=== PATIENT | female | born 1995 | race African-American/Black ===

== ENCOUNTER 2017-05-07 19:21 | Emergency (ER) | payer MEDICAID, OTHER ==
[2017-05-07 19:36] VITALS: BP 124/78
[2017-05-07] MEDS ORDERED: LIDOCAINE 1% INJ-PF (10 MG/ML) 30 ML SDV INJ ONE (20:25)
[2017-05-07] MEDS ORDERED: AZITHROMYCIN 250 MG TABLET PO ONE (20:25)
[2017-05-07] MEDS ORDERED: CEFTRIAXONE INJ 1000 MG VIAL IM ONE (20:25)
--- NOTE | 2017-05-07 20:31 | ER Document Report ---
HPI - HPI Pain Level: 4 Notes: Patient is a 21-year-old female who presents the ED complaining of vaginal itching and possible scant discharge x several days. Patient states that she would like STD testing. Patient states that she has been having unprotected sex , but denies and she has had a recent menstrual period. Patient denies any significant past medical history or drug allergies. She still eating and drinking without any difficulties. + herpes history. Patient denies a history of syphilis, gonorrhea, chlamydia, HIV, hepatitis. Denies any headache, fever, neck pain/stiffness, URI, sore throat, chest pain, palpitations , syncope, cough, shortness of breath, wheeze, dyspnea, abdominal pain, nausea/ vomiting/diarrhea, urinary retention, dysuria, hematuria, vaginal bleeding/odor , joint pains, or rash. - ROS Notes: REVIEW OF SYSTEMS: CONSTITUTIONAL : Denies fever, chills, or sweats. Denies recent illness. EENT: Denies eye, ear, throat, or mouth pain or symptoms. Denies nasal or sinus congestion or discharge. Denies throat, tongue, or mouth swelling or difficulty swallowing. CARDIOVASCULAR: Denies chest pain. Denies palpitations or racing or irregular heart beat. Denies ankle edema. RESPIRATORY: Denies cough, cold, or chest congestion. Denies shortness of breath, difficulty breathing, or wheezing. GASTROINTESTINAL: Denies abdominal pain or distention. Denies nausea, vomiting , or diarrhea. Denies blood in vomitus, stools, or per rectum. Denies black, tarry stools. Denies constipation. GENITOURINARY: Denies difficulty urinating, painful urination, burning, frequency, blood in urine, or discharge. FEMALE GENITOURINARY: see hpi MUSCULOSKELETAL: Denies back or neck pain or stiffness. Denies joint pain or swelling. SKIN: Denies rash, lesions or sores. NEUROLOGICAL: Denies confusion or altered mental status. Denies passing out or loss of consciousness. Denies dizziness or lightheadedness. Denies headache. Denies weakness or paralysis or loss of use of either side. Denies problems with gait or speech. PSYCHIATRIC: Denies anxiety or stress. Denies depression, suicidal ideation, or homicidal ideation. ALL OTHER SYSTEMS REVIEWED AND NEGATIVE. Dictation was performed using Be[employer] recognition software - DERM Skin Color: Normal Past Medical History - Social History Smoking Status: Unknown if Ever Smoked Family History: Reviewed & Not Pertinent Patient has suicidal ideation: No Patient has homicidal ideation: No Renal/ Medical History: Denies: Hx Peritoneal Dialysis Vertical Provider Document - CONSTITUTIONAL Agree With Documented VS: Yes Notes: PHYSICAL EXAMINATION: GENERAL: Well-appearing, well-nourished and in no acute distress. LUNGS: Breath sounds clear to auscultation bilaterally and equal. No wheezes rales or rhonchi. HEART: Regular rate and rhythm without murmurs ABDOMEN: Soft, nontender, nondistended abdomen. No guarding, no rebound. No masses appreciated. Normal bowel sounds present. CVA tenderness negative bilaterally. Female : No inguinal adenopathy. External genitalia without erythema, lesions , or masses. Vaginal mucosa pink with scant white discharge. Cervix parous, pink, and without discharge. Uterus is smooth. No adnexal tenderness. Extremities: No cyanosis/clubbing/edema b/l. Peripheral pulses 2+. Capillary refill less than 3 seconds. NEUROLOGICAL: Normal speech, normal gait. Normal sensory, motor exams PSYCH: Normal mood, normal affect. SKIN: Warm, Dry, normal turgor, no rashes or lesions noted. - INFECTION CONTROL TRAVEL OUTSIDE OF THE [place] IN LAST 30 DAYS: No - RESPIRATORY O2 Sat by Pulse Oximetry: 100 Course - Re-evaluation Re-evalutation: 05/07/17 20:30 Patient is an afebrile, well-hydrated, 21-year-old female who presents the ED with vaginal itching NOS. Vitals are stable. PE otherwise unremarkable. Wet mount and UA unremarkable. Urine hcg negative. Chlam/kevin pending. Rocephin and zithromax was given today as precautionary. Low suspicion/risk for acute appendicitis, bowel obstruction, acute cholecystitis, acute cholangitis, perforated diverticulitis, incarcerated hernia, pancreatitis, perforated ulcer, peritonitis, sepsis, pelvic inflammatory disease, ectopic , tubo- ovarian abscess, ovarian torsion, or other systemic emergent condition at this time. Patient is aware that her condition can change from initial presentation and she needs to monitor symptoms closely and seek medical attention if any acute changes. Conservative measures otherwise for symptoms. Recheck with OBGYN in 2-3 days. Recheck/establish with your PCM in 2-3 days. Check in with the health department this week for any further testing/management. Return to the ED with any worsening/concerning symptoms otherwise as reviewed in discharge. Patient is in agreement. - Vital Signs Vital signs: Temp Pulse Resp BP Pulse Ox 98.9 F 58 L 16 124/78 100 05/07/17 19:34 05/07/17 19:34 05/07/17 19:34 05/07/17 19:34 05/07/17 19:34 Procedures - Pelvic Exam Pelvic exam Time completed: 20:45 Cultures obtained: Yes Wet prep obtained: Yes Bimanual exam performed: Yes - neg Witnessed by: Female NurseJoseline Discharge - Discharge Clinical Impression: Vaginal itching, Worried well Condition: Stable Disposition: HOME, SELF-CARE Instructions: Family Physicians / Practices Additional Instructions: Push fluids (i.e. water, cranberry juice) Proper hygenic technique Keep the skin clean Safe sexual practices with condoms everytime Tylenol/ibuprofen as needed May use over the counter AZO for burning with urination Check in with the health department this week for further testing* Your chlamydia/Ghon test are pending and you will be notified if positive results; you may call in 2 days for the results as well You have been given follow up instructions including low cost follow up with one of the local primary care offices. Follow up with them tomorrow for further care and reevaluation. Return immediately if symptoms worsen F/u with your PCM in 2-3 days for a recheck Return to the ED with any development of GOLDMAN/fever, trouble with vision, eye redness, worsening pain, urethral discharge, urinary retention, blood in the urine, flank pain, abdominal pain, n/v, Chest Pain, shortness of breath, joint pains, trouble breathing, or any other worsening/concerning symptoms as needed otherwise. Referrals: [facility] [Provider Group] - Follow up as needed [facility] [Provider Group] - [facility]NO [facility]AL MD] - Follow up in 3-5 days [facility] [Provider Group] - Follow up as needed
[2017-05-07 21:46] LABS: APPEARANCE,URINE SLIGHTLY-CLOUDY; BILIRUBIN,URINE NEGATIVE (NEGATIVE); GLUCOSE, URINE NEGATIVE (NEGATIVE); KETONES,URINE 20 mg/dL (NEGATIVE); LEUKOCYTE ESTERASE,URINE TRACE (NEGATIVE); NITRITE,URINE NEGATIVE (NEGATIVE); PROTEIN,URINE NEGATIVE (NEGATIVE); URINE SPECIFIC GRAVITY 1.028; UROBILINOGEN,URINE NEGATIVE mg/dL (<2.0)
[2017-05-07 23:11] LABS: CHLAM PCR NOT DETECTED (NOT DETECT)
== END 2017-05-07 22:10 | disposition home or self-care (01) ==
LOC: ER 19:21
DX: L29.9 Pruritus, unspecified (principal); Z20.2 Contact with and (suspected) exposure to infections with a predominantly sexual mode of transmission; Z71.1 Person with feared health complaint in whom no diagnosis is made
CPT/HCPCS: 81001; 81025; 87210; 87491; 87591; 99283

== ENCOUNTER 2019-09-27 08:51 | Emergency (ER) | payer SELFPAY ==
[2019-09-27 08:57] VITALS: BP 130/85
--- NOTE | 2019-09-27 09:26 | ER Document Report ---
HPI - HPI Time Seen by Provider: 09/27/19 09:18 Pain Level: 5 Context: Patient is a 24-year-old female who presents emergency department with a chief complaint of chronic dental pain. Patient reports she has had dental pain around all 4 wisdom teeth for about 2 years. Patient here requesting referrals for dentist in the area as she feels like this needs to be treated promptly. Patient reports she is called multiple dentist but that there is a wait time. Patient denies fever. Patient took a BC powder 1 hour prior to arrival. Patient denies difficulty breathing, difficulty swallowing or facial swelling. Patient denies fever. Patient reports this type of pain that she is experiencing currently is a same type of pain that she has been having for 2 years. - CONSTITUTIONAL Constitutional: DENIES: Fever, Chills - REPRODUCTIVE LMP: 08/27/2019 Reproductive: DENIES: : Past Medical History - General Information source: Patient - Social History Smoking Status: Never Smoker Chew tobacco use (# tins/day): No Frequency of alcohol use: Occasional Drug Abuse: None Lives with: Family Family History: Reviewed & Not Pertinent Patient has suicidal ideation: No Patient has homicidal ideation: No - Past Medical History Cardiac Medical History: Reports: None Pulmonary Medical History: Reports: None EENT Medical History: Reports: None Neurological Medical History: Reports: None Endocrine Medical History: Reports: None Renal/ Medical History: Reports: None. Denies: Hx Peritoneal Dialysis Malignancy Medical History: Reports: None GI Medical History: Reports: None Musculoskeletal Medical History: Reports None Skin Medical History: Reports None Psychiatric Medical History: Reports: None Traumatic Medical History: Reports: None Infectious Medical History: Reports: None Surgical Hx: Negative Vertical Provider Document - CONSTITUTIONAL Agree With Documented VS: Yes Exam Limitations: No Limitations General Appearance: No Apparent Distress - INFECTION CONTROL TRAVEL OUTSIDE OF THE [place] IN LAST 30 DAYS: No - HEENT HEENT: Atraumatic, Normal ENT Exam, Normocephalic, PERRLA Notes: When palpating inside the mouth there is no significant tenderness or erythema noted to the gums or teeth. There is no palpable abscess. No facial swelling. - RESPIRATORY Respiratory: Breath Sounds Normal, No Respiratory Distress - CARDIOVASCULAR Cardiovascular: Regular Rate, Regular Rhythm - GI/ABDOMEN Gastrointestinal: Abdomen Soft, Abdomen Non-Tender, Normal Bowel Sounds - NEURO Level of Consciousness: Awake, Alert, Appropriate - DERM Integumentary: Warm, Dry, No Rash Course - Re-evaluation Re-evalutation: 09/27/19 09:34 I have provided the patient with multiple referrals to a dentist and oral surgeons here in the area. I did inform her that there could be a wait time and that a dentist may not be able to get her in immediately. I did tell her to call multiple places today to see who can get her in the fastest. Patient no acute distress. - Vital Signs Vital signs: Temp Pulse Resp BP Pulse Ox 98.5 F 76 16 130/85 H 100 09/27/19 08:55 09/27/19 08:55 09/27/19 08:55 09/27/19 08:55 09/27/19 08:55 Discharge - Discharge Clinical Impression: Chronic dental pain Condition: Stable Disposition: HOME, SELF-CARE Additional Instructions: Today was seen in the emergency department for chronic dental pain. As requested I have given you multiple dental referrals. Please call these multiple locations to schedule a follow-up appointment as ultimately need your wisdom teeth removed. Your evaluation did not reveal any acute infection that requires oral antibiotics. Please return to the emergency department if you develop any facial swelling, significant dental pain that is different from your normal, fever, difficulty breathing or swallowing or any new or worsening symptoms. Referrals: [facility] [Provider Group] - Follow up as needed [facility] [ACTIVE STAFF] - Follow up as needed [facility] [Provider Group] - Follow up as needed
== END 2019-09-27 09:48 | disposition home or self-care (01) ==
LOC: ER 08:51
DX: G89.29 Other chronic pain (principal); K08.89 Other specified disorders of teeth and supporting structures
CPT/HCPCS: 99282